=== PATIENT | female | born 1965 | race African-American/Black ===

== ENCOUNTER → 2017-10-24 | Outpatient (CLI) | payer OTHER ==
[~2017-10-24] VITALS: Ht 166.4 cm; Wt 98.0 kg
[~2017-10-24] MED LIST: CYANOCOBALAM1000 MCG PO; DAILY MULTIPLE1 EACH PO; FISH OIL 1,0001 EAC7 PO; FOLIC ACID0.8 MG PO; IRON325 M1 PO; L-ARGININE500 M1 PO; NORVASC5 MG PO; OCUVITE TABLET1 EACH PO; VALSARTAN80 MG PO; VESICARE5 MG PO; VITAMIN D32000 UNI1 PO
== END | disposition home or self-care (01) ==
LOC: AMB 11:52
PROC: 0DJD8ZZ Inspection of Lower Intestinal Tract, Via Natural or Artificial Opening Endoscopic (ICD-10-PCS; principal; 2017-10-24)
DX: Z12.11 Encounter for screening for malignant neoplasm of colon (principal); I10 Essential (primary) hypertension; E11.9 Type 2 diabetes mellitus without complications; Z83.3 Family history of diabetes mellitus
CPT/HCPCS: 93005